=== PATIENT | male | born 1995 | race Caucasian/White ===

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

== ENCOUNTER 2018-12-20 01:06 | Emergency (ER) | payer OTHER ==
[2018-12-20 03:34] VITALS: BP 149/100
--- NOTE | 2018-12-20 03:36 | ED Physician Documentation ---
PD HPI CHEST PAIN - Stated complaint Stated Complaint: BACK/LUNG PX - Chief complaint Chief Complaint: General PD PAST MEDICAL HISTORY - Past Medical History Endocrine/Autoimmune: None Derm: Eczema Other Past Medical History: arthritis ankle - Past Surgical History Past Surgical History: Yes Ortho: Other HEENT: Tonsil/Adenoidectomy - Present Medications Home Medications: Ambulatory Orders Medication Instructions Recorded Confirmed No Known Home Medications 09/23/15 12/20/18 - Allergies Allergies/Adverse Reactions: Allergies Allergy/AdvReac Type Severity Reaction Status Date / Time No Known Drug Allergies Allergy Verified 12/20/18 01:25 - Social History Does the pt smoke?: Yes Smoking Status: Heavy tobacco smoker Does the pt drink ETOH?: No ETOH Use: Beer, Liquor Does the pt have substance abuse?: No - Immunizations Immunizations are current?: No Immunizations: TDAP >10years/unknown - POLST Patient has POLST: No Results - Vitals Vitals: Vital Signs - 24 hr 12/20/18 12/20/18 01:21 03:33 Temperature 36.8 C Heart Rate 96 82 Respiratory 16 16 Rate Blood Pressure 156/104 H 149/100 H O2 Saturation 99 99 Oxygen O2 Source Room air
== END 2018-12-20 03:55 | disposition left against medical advice (07) ==
LOC: ED 01:06
DX: Z53.21 Procedure and treatment not carried out due to patient leaving prior to being seen by health care provider (principal)
CPT/HCPCS: 99284

== ENCOUNTER 2022-01-11 18:40 | Emergency (ER) | payer MEDICAID ==
[2022-01-11 18:54] VITALS: BP 152/108
--- NOTE | 2022-01-11 20:16 | XRAY Report ---
PROCEDURE: Finger(s) RT INDICATIONS: Trauma TECHNIQUE: AP hand, 3 views of the right fourth finger(s) acquired. COMPARISON: None FINDINGS: Bones: No acute fractures or dislocations. No suspicious bony lesions. Soft tissues: No suspicious soft tissue calcifications. There is mild soft tissue swelling centered over the fourth proximal interphalangeal joint. IMPRESSION: Soft tissue swelling at the right fourth finger centered over the proximal interphalangeal joint. No underlying fracture, dislocation, or significant degenerative change. If there is persistent clinical concern for a radiographically occult fracture, recommend immobilizat ion and repeat imaging in 10 to 14 days. Reviewed by: Daniel Oakes MD on 01/11/2022 8:15 PM PDT Approved by: Daniel Oakes MD on 01/11/2022 8:15 PM PDT Station ID: [id number]
[2022-01-11] MEDS ORDERED: KETOROLAC 30 MG/ML VIAL IM STA (20:32)
--- NOTE | 2022-01-11 20:33 | ED Physician Documentation ---
History of Present Illness - Stated complaint Stated Complaint: R KNUCKLE PX - Chief complaint Chief Complaint: Ext Problem - History obtained from History obtained from: Patient - History of Present Illness Timing: Today - Additonal information Additional information: 26-year-old male presents for right middle finger pain. 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 Reports swelling in his right middle finger knuckle. No medications taken at home for symptoms. Here today for evaluation of his finger swelling. Review of Systems Ten Systems: 10 systems reviewed and negative Constitutional: denies: Fever, Chills GI: denies: Abdominal Pain, Abdominal Swelling, Nausea Skin: denies: Rash, Lesions, Abrasion (s) PD PAST MEDICAL HISTORY - Past Medical History Past Medical History: Yes Cardiovascular: Hypertension Endocrine/Autoimmune: None Musculoskeletal: Gout Derm: Eczema - Past Surgical History Past Surgical History: Yes Ortho: Other HEENT: Tonsil/Adenoidectomy - Present Medications Home Medications: Ambulatory Orders Medication Instructions Recorded Confirmed No Known Home Medications 09/23/15 12/20/18 Hydrocodone/Acetaminophen 1 each PO Q6H PRN #20 tablet 05/06/19 [Hydrocodon-Acetaminophen 5-325] Naproxen 500 mg PO BID #20 tablet 05/06/19 dexAMETHasone [Decadron] 4 mg PO DAILY #5 tablet 05/06/19 - Allergies Allergies/Adverse Reactions: Allergies Allergy/AdvReac Type Severity Reaction Status Date / Time No Known Drug Allergies Allergy Verified 01/11/22 18:54 - Social History Does the pt smoke?: No Smoking Status: Never smoker Does the pt drink ETOH?: No Does the pt have substance abuse?: No - Immunizations Immunizations are current?: No Immunizations: TDAP >10years/unknown - POLST Patient has POLST: No PD ED PE NORMAL - Vitals Vital signs reviewed: Yes - General General: Alert and oriented X 3, No acute distress, Well developed/nourished - HEENT HEENT: Atraumatic, PERRL, EOMI - Neck Neck: Supple, no meningeal sign, No bony TTP, No adenopathy - Cardiac Cardiac: RRR, No murmur, Strong equal pulses - Respiratory Respiratory: No respiratory distress, Clear bilaterally - Abdomen Abdomen: Soft, Non tender, Non distended - Back Back: No CVA TTP, No spinal TTP - Derm Derm: Normal color, Warm and dry, No rash - Extremities Extremities: No deformity, No tenderness to palpate, Normal ROM s pain, Other (mild swelling PIP R middle finger. 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 X-ray negative for acute findings. Placed in ezio tape, counseled Tylenol and Motrin as needed for pain and swelling. May apply ice as needed. Departure - Departure Disposition: 01 Home, Self Care Clinical Impression: Finger pain Condition: Stable Instructions: ED Sprain Finger Discharge Date/Time: 01/11/22 21:20
== END 2022-01-11 21:20 | disposition home or self-care (01) ==
LOC: ED 18:40
DX: M79.644 Pain in right finger(s) (principal)
CPT/HCPCS: 96372; 99282; 99283